=== PATIENT | female | born 1955 | race Caucasian/White ===

== ENCOUNTER 2017-01-16 12:47 | Day surgery (SDC) | payer OTHER ==
[~2017-01-16] VITALS: Ht 152.4 cm; Wt 50.0 kg
[2017-01-16] MEDS ORDERED: ALENDRONATE SODIUM (13:29)
[2017-01-16] MEDS ORDERED: VITAMIN D (13:29)
[2017-01-16] MEDS ORDERED: VITAMIN C (13:29)
[2017-01-16] MEDS ORDERED: CALCIUM (13:29)
[2017-01-16] MEDS ORDERED: OMEPRAZOLE (13:29)
[2017-01-16 13:31] VITALS: Ht 152.4 cm; Wt 50.0 kg
[2017-01-16 14:45] VITALS: PULSE 74; RESP 18
[2017-01-16] MEDS ORDERED: FENTAnyl 50 MCG/ML VIAL ONE (15:25)
[2017-01-16] MEDS ORDERED: MIDAZOLAM 1 MG/ML 2 ML INJ ONE ×3 (15:26)
--- NOTE | 2017-01-16 15:27 | OPPN ---
Date/Time of Note Date/Time of Note DATE: 01/16/17 TIME: 15:23 Proc Note GI Procedure Date 01/16/17 Indication: other (Dyspepsia) Pre-procedure Diagnosis Dyspepsia Post-procedure Diagnosis Impression: Prominent proximal esophageal veins Moderate distal esophagitis. Small hiatal hernia. Moderate gastritis. Rule out H. pylori infection. Biopsies obtained. Otherwise normal EGD. Plan: PPI therapy Review pathology. Follow-up as previously scheduled. . Procedure Performed: Endoscopy (Plus biopsies) Surgeon KENISHA JUAREZ MD See signature line Correctional Case Manager none Anesthesia Type: moderate sedation (Versed 4 mg/fentanyl 100 mcg) Tourniquet Time none EBL none Transfusion required none Biopsy 1: Gastric body and antrum Grafts/Implants none Tubes/Drains none Complication(s) none Disposition: home Procedure Description After informed consent, with the patient/relatives understanding the procedure, its indications, potential risks and complications, including but not limited to : allergic reaction, bleeding, perforation or infection, and after all pertinent questions were answered to the patients satisfaction, the patient/ relatives signed witnessed informed consent. Following this, premedication was administered slowly IV push under careful cardiovascular and respiratory monitoring with pulse oximetry, automatic blood pressure, and awake overnight monitor. Once the sedative effect was achieved the patient was place in the left lateral decubitus, the panendoscope was introduced and advanced under visual control. Careful examination of the upper gastrointestinal tract, both on insertion as well as withdrawal of the instrument disclosing the following findings: ESOPHAGUS: the mucosa of the entire esophagus was carefully examined and showed the following findings: There are prominent esophageal veins. The distal esophagus shows erythema and edema of the mucosa of a moderate degree. Otherwise the mucosa appears within normal limits. There is no evidence of varices, neoplasm, or stricture. Small hiatal Hernia identified. STOMACH: Upon entrance to the stomach air was insufflated, the gastric finn distended normally. The mucosa of the fundus, body and antrum of the stomach was carefully examined both head-on and on retroflexion, and showed the following findings: There is moderate erythema and edema because of the body and antrum the stomach. Biopsies were obtained to rule out H. pylori infection. Otherwise the mucosa appears within normal limits with no abnormalities. There is no evidence of ulcers or neoplasm. PYLORUS: The pylorus was carefully examined and showed the following findings: the pylorus appears patent and within normal limits, with no evidence of gastric outlet obstruction. DUODENUM: The duodenal mucosa was carefully examined in the duodenal bulb as well as the second portion of the duodenum and showed the following findings: the mucosa appears unremarkable with no evidence of duodenitis, ulcer or neoplasm. Copies To: CC: KENISHA JUAREZ MD, MORDO MD Jan 16, 2017 15:27
--- NOTE | 2017-01-16 15:30 | OPPN ---
Date/Time of Note Date/Time of Note DATE: 01/16/17 TIME: 15:27 Proc Note GI Procedure Date 01/16/17 Indication: other (CRC screening) Pre-procedure Diagnosis CRC screening Post-procedure Diagnosis Impression: Mild diverticulosis left side of the colon. Moderate-sized internal hemorrhoids. Otherwise normal colonoscopy to cecum Plan: Follow up as scheduled] High fiber diet Annual hemoccult stool testing [Screening colonoscopy in 10 years] . Procedure Performed: Colonoscopy Surgeon KENISHA JUAREZ MD See signature line Building Supervisor none Anesthesia Type: moderate sedation (Versed 4 mg/fentanyl 100 mcg) Tourniquet Time none EBL none Transfusion required none Biopsy 1: None Grafts/Implants none Tubes/Drains none Complication(s) none Disposition: home Procedure Description After informed consent, with the patient/relatives understanding the procedure, its indications and potential risks and complications, including but not limited to: Allergic reaction, bleeding, perforation, infection, and after all pertinent questions were answered to the patient's satisfaction, the patient/ relatives signed the witnessed informed consent. Following this, premedication was administered slowly IV push under careful cardiovascular and respiratory monitoring with pulse OXIMETRY, automatic blood pressure, and surveillance monitor. Once the sedative effect was achieved, the patient was placed in the left lateral decubitus position, digital rectal examination was performed. The colonoscope was then introduced and advanced under visual control throughout all segments of the colon including: the rectum, sigmoid, descending colon, splenic flexure, transverse colon, hepatic flexure, ascending colon and finally reaching the cecum which was clearly identified by transillumination, finger indentation and the ileocecal valve. Careful examination of the mucosa of the lower gastrointestinal tract both on insertion as well as withdrawal of the instrument disclosed the following findings: PREPARATION QUALITY: [Adequate], RECTAL EXAM: The anorectal area was visualized examined and digital rectal examination performed with the following findings: Moderate-sized external hemorrhoids. Otherwise no evidence of perirectal disease, no masses. COLONIC MUCOSA: The mucosa of all segments of the colon was carefully examined and showed the following findings: There is mild diverticulosis left side of the colon. Otherwise the examined mucosa appears within normal limits. There is no evidence of inflammatory changes, polyps or neoplasms, vascular malformation, or any other abnormality. The instrument was then withdrawn, the patient tolerated the procedure well and was transferred out of the Endoscopy Suite awake and in good condition to continue recovery under observation. Copies To: CC: KENISHA JUAREZ MD, MORDO MD Jan 16, 2017 15:30
[2017-01-16 16:52] VITALS: BP 114/60; PULSE 73; RESP 18
== END 2017-01-16 17:44 | disposition home or self-care (01) ==
LOC: GIL 12:47
PROVIDERS: ATTEND Internal Medicine Gastroenterology
DX: Z12.11 Encounter for screening for malignant neoplasm of colon (principal); K29.50 Unspecified chronic gastritis without bleeding; K57.90 Diverticulosis of intestine, part unspecified, without perforation or abscess without bleeding; K64.8 Other hemorrhoids
CPT/HCPCS: 43239; 45378; 88305; 88312; J2250; J3010; Z7610